=== PATIENT | female | born 2005 | race Caucasian/White ===

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

== ENCOUNTER → 2023-04-13 | Outpatient (CLI) | payer BC ==
--- NOTE | 2023-04-13 15:35 | US ---
EXAMINATION TYPE: US kidneys/renal and bladder DATE OF EXAM: 04/13/2023 COMPARISON: NONE CLINICAL INDICATION: Female, 17 years old with history of N39.42 INCONTINENCE WITHOUT SENSORY AWARENE SS; incontinence since childhood, keeps getting worse EXAM MEASUREMENTS: Right Kidney: 11.2x4.1x3.9 cm Left Kidney: 11.1x4.3x4.7 cm Post Void Residual Volume: 15.4 mL Right Kidney: wnl Left Kidney: wnl Bladder: Ham Stripper notes: possible wall irregularity, not able to fully assess due to poorly disten ded bladder Bilateral Jets seen: Yes Normal Post Void Residual: Yes IMPRESSION: 1. No hydronephrosis. 2. Underdistention of the bladder limits its evaluation. 3. Increased postvoid bladder volume of 15 mL and possible mild posterior wall thickening. Correlate to exclude cystitis.
== END | disposition home or self-care (01) ==
LOC: RADUSWWP 14:28
PROVIDERS: ATTEND Internal Medicine
DX: N39.42 Incontinence without sensory awareness (principal)
CPT/HCPCS: 76770